=== PATIENT | male | born 2000 | race Caucasian/White ===

== ENCOUNTER 2025-05-20 10:19 | Inpatient (IN) | payer OTHER ==
[~2025-05-20] VITALS: Ht 170.2 cm; Wt 66.0 kg
[2025-05-20] MEDS ORDERED: ACETAMINOPHEN 325 MG TABLET PO PRN (11:15)
[2025-05-20] MEDS ORDERED: MAGNESIUM HYDROXIDE SUSPENSION 30 ML UDCUP PO PRN (11:15)
[2025-05-20] MEDS ORDERED: ZOLPIDEM TARTRATE 5 MG TABLET PO PRN (11:15)
[2025-05-20 11:25] LABS: COVID AG,FIA SOURCE NASAL SWAB
[2025-05-20 11:59] LABS: PLATELET COUNT (AUTO) 219 K/uL (150-450); RED BLOOD CELL COUNT(AUTO) 5.33 MIL/uL (4.50-5.90); RED CELL DISTRIBUTION WIDTH 14.2 % (11.5-14.5); WHITE BLOOD COUNT (AUTO) 7.3 K/uL (4.5-11.0)
[2025-05-20 12:05] LABS: SARS-COV2 (COVID) ANTIGEN,FIA Negative (Negative)
[2025-05-20 12:07] LABS: INFLUENZA TYPE A NEGATIVE FOR TYPE A (NEGATIVE); INFLUENZA TYPE B NEGATIVE FOR TYPE B (NEGATIVE)
[2025-05-20 12:29] LABS: CALCIUM, TOTAL 9.1 mg/dL (8.8-10.5); CREATININE 0.64 mg/dL (0.60-1.30); GLOMERULAR FILTR. RATE CALC > 60 mL/min (>60); GLUCOSE,RANDOM 87 mg/dL (70-110); SODIUM SERUM 140 mmol/L (136-145); UREA NITROGEN, BLOOD 7 mg/dL (7-18)
[2025-05-20 12:34] LABS: ASPARTATE AMINOTRANSFERASE 19 U/L (15-37); TOTAL PROTEIN, SERUM 7.7 g/dL (6.4-8.2)
[2025-05-20 21:02] VITALS: BP 120/75; PULSE 63; RESP 18; TEMP 98.2; O2SAT 99
[2025-05-20] MEDS ORDERED: SODIUM CHLORIDE 3% 15 ML NEB SOLUTION NEB ONE (21:57)
[2025-05-21 05:52] VITALS: BP 111/71; PULSE 60; RESP 18; TEMP 97.7; O2SAT 99
[2025-05-21 07:32] VITALS: PULSE 63; RESP 12; O2SAT 99
[2025-05-21] MEDS: FAMOTIDINE 20 MG TABLET PO SCH (09:06)
[2025-05-21 10:21] LABS: MTB PCR w/Rif. Resistance-SPUT NOT DETECTED (Not Detectd)
[2025-05-21 10:39] VITALS: BP 113/75; PULSE 63; RESP 19; TEMP 98.2; O2SAT 97
[2025-05-21 11:44] LABS: MTB PCR w/Rif. Resistance-SPUT NOT DETECTED (Not Detectd)
[2025-05-21 15:05] VITALS: BP 121/63; PULSE 61; RESP 18; TEMP 98.4; O2SAT 95
[2025-05-21 19:30] VITALS: BP 124/75; PULSE 63; RESP 18; TEMP 97.9; O2SAT 97
[2025-05-22 04:36] VITALS: BP 117/76; PULSE 67; RESP 18; TEMP 97.7; O2SAT 97
[2025-05-22 07:25] VITALS: BP 126/74; PULSE 71; RESP 18; TEMP 97.5; O2SAT 99
[2025-05-22 20:12] VITALS: BP 125/80; PULSE 76; RESP 18; TEMP 97.8; O2SAT 99
[2025-05-23 05:18] VITALS: BP 117/77; PULSE 65; RESP 18; TEMP 97.5; O2SAT 99
[2025-05-23 08:17] VITALS: BP 108/76; PULSE 65; RESP 18; TEMP 98.1; O2SAT 98
[2025-05-23 20:19] VITALS: BP 120/72; PULSE 64; RESP 18; TEMP 98.2; O2SAT 98
[2025-05-24 05:47] VITALS: BP 115/74; PULSE 60; RESP 18; TEMP 97.5; O2SAT 99
[2025-05-24 07:52] VITALS: BP 112/71; PULSE 62; RESP 18; TEMP 97.2; O2SAT 97
[2025-05-24 19:25] VITALS: BP 109/66; PULSE 71; RESP 18; TEMP 98.1; O2SAT 97
[2025-05-25 03:08] VITALS: BP 118/83; PULSE 60; RESP 18; TEMP 97.7; O2SAT 99
[2025-05-25 06:06] LABS: QUANTIFERON+, Nil Value 0.12 IU/mL; QUANTIFERON+,Mitogen Value >10.00 IU/mL; QUANTIFERON+,TB1 Antigen Value >10.00 IU/mL; QUANTIFERON+,TB2 Antigen Value >10.00 IU/mL; QUANTIFERON, TB GOLD PLUS Positive (Negative)
[2025-05-25 08:47] VITALS: BP 117/85; PULSE 85; RESP 18; TEMP 97.7; O2SAT 99
[2025-05-25] MEDS: *CLINICAL-RX DOSING [ENTER DRUG IN COMMENTS] CLINICAL ONE (10:37)
[2025-05-25] MEDS: ETHAMBUTOL HCL 400 MG TABLET PO SCH (11:58)
[2025-05-25] MEDS: ISONIAZID 300 MG TABLET PO SCH (11:59)
[2025-05-25] MEDS: PYRIDOXINE HCL 50 MG TABLET PO SCH (12:09)
[2025-05-25] MEDS: PYRAZINAMIDE 500 MG TABLET PO SCH (12:09)
[2025-05-25 21:29] VITALS: BP 127/77; PULSE 67; RESP 18; TEMP 98.8; O2SAT 99
[2025-05-26 04:03] VITALS: BP 103/58; PULSE 65; RESP 18; TEMP 97.9; O2SAT 99
[2025-05-26 08:00] VITALS: BP 122/85; PULSE 53; RESP 19; TEMP 97.9; O2SAT 99
[2025-05-26 20:26] VITALS: BP 115/77; PULSE 70; RESP 20; TEMP 97.9; O2SAT 98
[2025-05-27 05:23] VITALS: BP 115/83; PULSE 57; RESP 18; TEMP 97.9; O2SAT 99
[2025-05-27 08:00] VITALS: BP 121/78; PULSE 55; RESP 18; TEMP 97.5; O2SAT 99
[2025-05-27 19:30] VITALS: BP 128/85; PULSE 83; RESP 18; TEMP 97.5; O2SAT 100
[2025-05-27 23:41] LABS: APPEARANCE,URINE CLEAR (CLEAR); GLUCOSE, URINE (UA) NEGATIVE (NEGATIVE); LEUKOCYTE ESTERASE ,URINE NEGATIVE (NEGATIVE); NITRATE,URINE NEGATIVE (NEGATIVE); OCCULT BLOOD,URINE NEGATIVE (NEGATIVE); SPECIFIC GRAVITIY, URINE 1.020 (1.003-1.030)
[2025-05-28 04:02] VITALS: BP 153/82; PULSE 79; RESP 16; TEMP 98.4; O2SAT 100
[2025-05-28 07:17] LABS: PLATELET COUNT (AUTO) 220 K/uL (150-450); RED BLOOD CELL COUNT(AUTO) 5.33 MIL/uL (4.50-5.90); RED CELL DISTRIBUTION WIDTH 13.8 % (11.5-14.5); WHITE BLOOD COUNT (AUTO) 6.2 K/uL (4.5-11.0)
[2025-05-28 07:28] LABS: ASPARTATE AMINOTRANSFERASE 17 U/L (15-37); CALCIUM, TOTAL 8.7 mg/dL (8.8-10.5); CREATININE 0.80 mg/dL (0.60-1.30); GLOMERULAR FILTR. RATE CALC > 60 mL/min (>60); GLUCOSE,RANDOM 80 mg/dL (70-110); SODIUM SERUM 140 mmol/L (136-145); TOTAL PROTEIN, SERUM 7.1 g/dL (6.4-8.2); UREA NITROGEN, BLOOD 11 mg/dL (7-18)
[2025-05-28 08:03] VITALS: BP 121/80; PULSE 59; RESP 18; TEMP 98.1; O2SAT 99
[2025-05-28 19:51] VITALS: BP 122/78; PULSE 72; RESP 18; TEMP 98.2; O2SAT 97
[2025-05-29 04:49] VITALS: BP 114/74; PULSE 58; RESP 18; TEMP 98.1; O2SAT 99
[2025-05-29 08:22] VITALS: BP 118/82; PULSE 75; RESP 20; TEMP 98.1; O2SAT 99
[2025-05-29 20:00] VITALS: BP 135/72; PULSE 79; RESP 18; TEMP 98; O2SAT 97
[2025-05-29 20:02] VITALS: BP 121/77; PULSE 70; RESP 18; TEMP 97.5; O2SAT 99
[2025-05-30 04:00] VITALS: BP 124/70; PULSE 76; RESP 17; TEMP 98; O2SAT 97
[2025-05-30 07:00] VITALS: BP 130/86; PULSE 55; RESP 19; TEMP 97.7; O2SAT 99
[2025-05-30] MEDS ORDERED: ETHA400T25 PO (11:24)
[2025-05-30] MEDS ORDERED: FAMO20 PO (11:24)
[2025-05-30] MEDS ORDERED: ISON300T90 PO (11:25)
[2025-05-30] MEDS ORDERED: PYRA500T33 PO (11:25)
[2025-05-30] MEDS ORDERED: PYRI-9 PO (11:26)
== END 2025-05-30 20:35 | DRG 179 ==
LOC: EMS 10:28 → EDH 11:07 → 6N 20:45
PROVIDERS: ADMIT Internal Medicine; ATTEND Internal Medicine
DX: A15.0 Tuberculosis of lung (principal); F17.200 Nicotine dependence, unspecified, uncomplicated; Z20.822 Contact with and (suspected) exposure to COVID-19; F12.90 Cannabis use, unspecified, uncomplicated; Z78.9 Other specified health status
CPT/HCPCS: 71045; 71250; 80048; 80053; 80076; 81003; 83880; 85025; 86480; 87015; 87206; 87389; 87556; 87804; 94640; 99285; 36415-L1; 36415-TC